=== PATIENT | female | born 1985 | race African-American/Black ===

== ENCOUNTER 2024-05-17 15:37 | Outpatient (CLI) | payer OTHER, SELFPAY ==
[2024-05-17 17:11] LABS: Trichomonas Vag PCR NOT DETECTED (NOT DETECTE)
[2024-05-17 17:36] LABS: Chlamydia trachomatis NOT DETECTED (NOT DETECTE); Neisseria gonorrhoeae PCR NOT DETECTED (NOT DETECTE)
== END 2024-05-17 15:38 | disposition home or self-care (01) ==
PROVIDERS: Visit Provider Obstetrics & Gynecology
DX: Z11.3 Encounter for screening for infections with a predominantly sexual mode of transmission (principal)
CPT/HCPCS: 87491; 87591; 87661

== ENCOUNTER 2025-05-16 13:22 | Outpatient (CLI) | payer OTHER, SELFPAY ==
--- NOTE | ~2025-05-16 | US_ITS ---
EXAMINATION: US pelvic complete w TV INDICATION: Leiomyoma of the uterus Comparison:No prior studies for comparison. TECHNIQUE: Multiple transabdominal and endovaginal sonographic images of the pelvis performed. FINDINGS: The uterus measures 9.8 x 4.3 x 5.8 cm. There is a fibroid measuring 4.2 x 3.8 x 3.4 cm The endometrial complex measures 12 mm. The right ovary measures 2.4 x 1.9 x 2.4 cm and the left ovary measures 3.7 x 3 x 3.2 cm. There are small follicles in each ovary. Normal doppler signal in both ovaries. There is no free fluid in the pelvis. There are no abnormal masses seen on either side. IMPRESSION: 1. Uterine fibroids, largest measuring 4.2 cm. 2: Mild endometrial thickening measuring 12 mm. Reviewed, dictated and finalized at location O.
--- OUTSIDE RECORDS SUMMARY | 2025-05-16 13:26 | XMS_ITS | Encounter Summary ---
Author Organization [facility] Facility Care Team Providers Care Chimney Builder Helper Name Role Phone Rohan العلي Primary Care Provider [phone] Le Ramirez MD Unavailable [phone] Brandy Dick NP Primary Care Provider [phone] Encounter Details Date Type Department Care Team (Latest Contact Info) Description 02/08/2017 Orders Only [facility] CLINCONV ProviderBernardo MD [address] [place] [address] Social History Tobacco Use Types Packs/Day Years Used Date Smoking Tobacco: Never Assessed Comments Unknown Sex and Gender Information Value Date Recorded Sex Assigned at Not on file Legal Sex Female 9:02 PM CDT Gender Identity Not on file Sexual Orientation Not on file documented as of this encounter Plan of Treatment Not on file documented as of this encounter Procedures Procedure Name Priority Date/Time Associated Diagnosis Comments COLONOSCOPY - SCAN 02/08/2017 12 :00 AM CDT documented in this encounter Results * COLONOSCOPY - SCAN (02/08/2017 12:00 AM CDT) Narrative 02/08/2017 12:00 AM CDT Ordered by an unspecified provider. Historical Provider Final Res ult documented in this encounter Visit Diagnoses Not on filedocumented in this encounter Care Teams Chimney Builder Helper Relationship Specialty Start Date End Date Rohan العلي PA PCP - General 11/26/18 05/05/24 Brandy Dick NP [facility] [address] PCP - General Family Medicine 05/06/24 Le Ramirez MD [address] [id number] Gynecology 01/20/21 documented as of this encounter
--- OUTSIDE RECORDS SUMMARY | 2025-05-16 13:26 | XMS_ITS | Clinical Summary ---
Author Organization [facility] Address [address] [place] [phone] Care Team Providers Care Can Bander Operator Name Role Phone Unavailable Primary Care Provider Unavailabl e Social History Tobacco Use Types Packs/Day Years Used Date Smoking Tobacco: Never Assessed Comments Unknown Sex and Gender Information Value Date Recorded Sex Assigned at Not on file Legal Sex Female 8:08 AM TOBACCO ROLLER Gender Identity Not on file Sexual Orientation Not on file Plan of Treatment Health Maintenance Due Date Last Done Comments Hepatitis C Virus (HCV) Screening 1985 TdaP Immunization 1985 Hepatitis B Immunization (1 of 3 - 19+ 3-dose series) 2004 Pap Smear 2006 Human Papillomavirus (HPV) Immunization (1 - 3-dose SCDM series) 2012 Cervical Cancer Screening (CCS) 2015 HPV/Cotest 2015 SARS-COV-2 Immunization ( - season) 2024 Influenza Immunization (#1) 2025 06/26/2019, 1 Respiratory Syncytial Virus (RSV) Immunization (Adult) (1 - 1-dose 75+ series) 2060 DTaP/Tdap/Td Immunization Discontinued 1989, 12/04/1986, 1985, Additional history exists Meningococcal Immunization (ACWY) Aged Out No longer eligible based on patient's age to complete this topic Pneumococcal Immunization Combined Aged Out No longer eligible based on patient's age to complete this topic Rotavirus Immunization Aged Out No lo nger eligible based on patient's age to complete this topic
--- OUTSIDE RECORDS SUMMARY | 2025-05-16 13:26 | XMS_ITS | Encounter Summary ---
Author Organization [facility] Healthcare Address [address] [place] [address] Care Team Providers Care Case Liner Name Role Phone Le Ramirez MD Unavailable [phone] Brandy Dick NP Primary Care Provider [phone] Encounter Details Date Type Department Care Team ([facility] st Contact Info) Description 05/02/2025 Results Follow-Up [facility] Medical Group Primary Care [address] [phone] Brandy Dick, DIRECTOR DRUG SAFETY [facility] [address] [address] Screening Mammogram Bilateral W [place] Social History Tobacco Use Types Packs/Day Years Used Date Smoking Tobacco: Never Alcohol Use Standard Drinks/Week Comments Not Currently 0 (1 standard drink = 0.6 oz pur e alcohol) AUDIT-C Answer Date Recorded Q1: How often do you have a drink containing alcohol? Never 05/06/2024 Q2: How many drinks containi ng alcohol do you have on a typical day when you are drinking? Patient does not drink Q3: How often do you have si x or more drinks on one occasion? Never 05/06/2024 PHQ-2 Answer Date Recorded PHQ-2 Total Score (If total score is 3 or more points, staff should administer the PHQ-9) 0 12/18/2024 Comments No Sex and Gender Information Value Date Recorded Sex Assigned at Not on file Legal Sex Female 9:02 PM CDT Gender Identity Not on file Sexual Orientation Not on file documented as of this encounter Miscellaneous Notes * Result Encounter Note - Brandy Dick NP - 05/02/2025 1:10 PM CDT Your mammogram is normal. Repeat screening in one year. documented in this encounter Plan of Treatment Not on file documented as of this encounter Visit Diagnoses Not on filedocumented in this encounter Care Teams Case Liner Relationship Specialty Start Date End Date Brandy Dick NP [address] [place] [id number] PCP - General Family Medicine 05/06/24 Le Ramirez MD [address] [id number] Gynecology 01/20/21 documented as of this encounter
--- OUTSIDE RECORDS SUMMARY | 2025-05-16 13:26 | XMS_ITS | Clinical Summary ---
Author Organization [facility] Address [address] [place] [address] Care Team Providers Care Marine Cargo Specialist Name Role Phone Le Ramirez MD Unavailable Brandy Dick NP Primary Care Provider [phone] Allergies No known active allergies Medications clotrimazole 1 % cream Apply topically 2 (two) times a day 30 g 1 4 Active Additional Information Patient not taking.Reported on 12/18/2024 losartan (COZAAR) 25 mg tablet Take 0.5 tablets (12.5 mg total) by mouth daily 90 tablet 1 4 06/19/20 25 Active naproxen (NAPROSYN) 500 mg tablet Take 1 tablet (500 mg total) by mouth 2 (two) times a day as needed for pain 60 tablet 1 4 Active Additional Information Patient not taking.Reported on 12/18/2024 metroNIDAZOLE (METROGEL) 0.75 % (37.5mg/5 gram) vaginal gelIndications: Bacterial Vaginosis Apply to vagina nightly for 5 nights. 70 g 4 Active Additional Information Patient not taking.Reported on 12/18/2024 magnesium oxide (MAG-OX) 250 mg (150.8 mg elemental) tabletIndicatio ns:hypomagnesem ia 1 tablet (250 mg total) daily Active polyethylene glycol (MIRALAX) 17 gram packetIndicatio ns:constipation Take 1 packet (17 g total) by mouth daily Active linaCLOtide (Linzess) 72 mcg capsule Take 1 capsule (72 mcg total) by mouth daily 30 capsule 3 Active Active Problems Problem Noted Date Diagnosed Date Upper back pain 08/04/2024 Assessment & Plan (08/04/2024 5:06 PM PILLOWCASE MAKER): Chronic, uncontrolled. Patient prescribed naproxen 500 mg BID PRN for pain. Patient to call office if pain does not improve with medication use. Slow transit constipation 11/09/2023 Assessment & Plan (12/18/2024 12:33 PM CDT): Chronic, uncontrolled. Patient prescribed Linzess 72 mcg daily. Patient provided with education on medication administration and potential side effects. Patient to hold Magnesium and Miralax when using Linzess. Patient referred to GI for follow up. Assessment & Plan (06/19/2024 8:43 AM CDT): Chronic, improving with Magnesium use. Patient to start Miralax PRN. Follow up larry 6 months. Assessment & Plan (05/06/2024 5:11 PM CDT): Chronic, patient to begin Miralax daily. Patient also instructed to increase daily water intake and high fiber foods. Follow up in 2 weeks. Assessment & Plan (11/09/2023 12:30 PM PILLOWCASE MAKER): Patient and I had a long talk about hydration water fiber we are going to work on this for few weeks and see if this helps with her constipation and fullness and bloating if it persists we did discuss having a colonoscopy Routine general medical exam ination at a [facility] facility 05/02/2023 Assessment & Plan (05/06/2024 5:09 PM CDT): CBC, CMP, lipid panel UTD with stable results. Patient to sign release for to obtain last Pap completed by her WAREHOUSE PROCESSOR with [facility]. Vaccinations: Due for Tdap booster. Patient to continue on current diet and exercise routine. Repeat wellness exam in one year. Assessment & Plan (05/02/2023 3:37 PM CDT): Healthcare maintenance updated LOLY (obstructive sleep apnea) 02/21/2023 Assessment & Plan (06/20/2024 3:23 PM CDT): Patient continue to wear her CPAP at auto titrating range 5-15 cm water pressure while sleeping. Her DME is [facility] Assessment & Plan (05/06/2024 5:10 PM CDT): Chronic, controlled with nightly CPAP use, following with pulmonology. Assessment & Plan (11/09/2023 10:06 AM PILLOWCASE MAKER): C-pap Assessment & Plan (06/20/2023 3:11 PM CDT): Due to continued LOLY symptoms, the patient continue CPAP at 5-15 cm water pressure. Denied need for supplies. DME [facility]. Due to the patient waking up with a headache similar to the 1 prior to CPAP therapy, I have ordered the patient overnight pulse ox on CPAP therapy. I also asked the patient to try to correlate the headaches with any external factors Assessment & Plan (02/21/2023 3:23 PM CDT): The patient continue to wear her CPAP in auto titrating range of 5-15 cm water pressure while sleeping. Her DME is [facility] Home Care. Primary hypertension 11/15/2022 Assessment & Plan (12/18/2024 12:35 PM CDT): Chronic, controlled. Patient to continue on Losartan 25 mg daily. Follow up in 6 months. Assessment & Plan (06/19/2024 8:44 AM CDT): Patient presents with elevated blood pressure reading in office. Patient to remain off lisinopril due to side effects. Patient prescribed Losartan 12.5 mg daily. Patient to call office if her blood pressure remains over 140/90 with Losartan use. Follow up in 6 months. Assessment & Plan (05/06/2024 5:07 PM CDT): Patient presents with elevated blood pressure reading in office. Patient to remain off Lisinopril 10 mg at this time. She is to begin checking her blood pressure at home BID. Follow up in 2 weeks for blood pressure recheck, home blood pressure log will be reviewed during her follow up. Assessment & Plan (11/09/2023 10:05 AM PILLOWCASE MAKER): This is controlled with c-pap Assessment & Plan (11/15/2022 2:06 PM PILLOWCASE MAKER): This is new, medications as ordered, discussed medications, use and side effects, labs 2 weeks with blood pressure readings Breast mass 01/20/2021 Screening, anemia, deficiency, iron 12/04/2019 Assessment & Plan (04/28/2022 2:34 PM CDT): HEALTHCARE MAINTENANCE Updated Assessment & Plan (03/23/2021 3:26 PM CDT): HEALTHCARE MAINTENANCE updated, Pap UTD Assessment & Plan (02/27/2020 8:55 AM CDT): HEALTHCARE MAINTENANCE updated, pap tomorrow Herpes labialis without complication 09/29/2019 Assessment & Plan (09/29/2019 9:35 AM PILLOWCASE MAKER): Famvir as directed. Instructed to avoid sharing food, drinks, or utensils, and kissing until lesions heal. Instructed to wash hands after coming in contact with lesion. Abreva over the counter PRN. Advised to follow-up with PCP if symptoms don't resolve, worsen, new symptoms develop, or if frequent recurrences. Willing to be kidney donor 01/30/2015 Indigestion 03/07/2012 Assessment & Plan (12/18/2024 12:34 PM CDT): Chronic, patient to follow a bland diet, avoiding spicy foods/acidic foods, caffeine, alcohol, and late night eating. Follow up in 6 months. Assessment & Plan (02/27/2020 8:54 AM CDT): Images from the original note were not included. Avoid spicy, fried, greasy foods Keep hydrated with clear liquids Elevate HOB 2- 3 inches Avoid or cut down on caffeines, chocolates, and ETOH No late meals, or heavy meals after 7 pm Reg daily exercise No tight fitting clothing Stop smoking - if smoker Watch for worsening symptoms - ie diarrhea, vomiting, nausea, blood per rectum, vomiting up blood ,fever, arthralgias, rash etc. RTC prn or if new symptoms arise Pt or parent verbalizes understanding Heart murmur 03/02/2012 Assessment & Plan (02/27/2020 8:54 AM CDT): Faint, will follow, had previous echo Resolved Problems Problem Noted Date Diagnosed Date Resolved Date Snoring 11/08/2022 02/21/2023 Assessment & Plan (11/22/2022 3:07 PM PILLOWCASE MAKER): Due to the snoring and hypersomnia, I have ordered an in-home nocturnal polysomnogram as required by her insurance. Procedure was detailed in depth. Patient was encouraged to call into the office if she has any questions. The patient is agreeable Feces contents abnormal 03/07/201204/25 Encounters Date Type Department Care Team Description 05/02/2025 Results Follow-Up [facility] Primary Care [address] [place] [phone] Brandy Dick, PHILIPPE Screening Mammogram Bilateral W Rosamaria 05/01/2025 7:18 AM CDT - 05/01/2025 11:59 PM CDT Hospital Encounter [facility] ([facility]) [address] [place] [address] Screening mammogram, encounter for Discharge Disposition: Discharge to home or self care 03/06/2025 9:00 AM CDT Clinical Support [facility] [address] [place] [address] Weight loss [R63.4] (Primary Dx) from Last 3 Months Immunizations Immunization Administration Dates Next Due DTP 04/20/1990, 7,1985,07/05,1985 HiB 06/20/1986 Influenza, Quadrivalent, Spl it, Preservative Free, Intramuscular 06/28/2023,07/01/2022 Influenza, Trivalent, Preser vative Free, Intramuscular 08/01/2024 Influenza, Unspecified 06/28/2023,2021,08/01/2021,06/25,06/26/2019,06/25/2018 MMR 07/02/1995,08/02/1991,06/20/1986 OPV 04/20/1990, 7,1985,07/05,1985 Pfizer SARS-CoV-2 Monovalent Vaccination (12+ Yrs) PURPLE 03/10/2021,02/17/2021 Family History Medical History Relation Name Comments Hypertension Father Family history of hypertension - (Added by TW Conv) No Known Problems Mother Relation Name Status Comments Father (Age 63) Mother Alive Social History Tobacco Use Types Packs/Day Years Used Date Smoking Tobacco: Never Tobacco Cessation:Counseling Given: Not Answered Alcohol Use Standard Drinks/Week Comments Not Currently [...] on file Sexual Orientation Not on file Obstetrics History Para Term AB IAB SAB Ectopic Multiple Livin g Live Births 0 0 0 0 0 0 0 0 0 0 0 Last Filed Vital Signs Vital Sign Reading Time Taken Comments Blood Pressure 155/103 03/06/2025 10:03 AM CDT Pulse 76 12/18/2024 8:19 AM CDT Temperature 36.1 C (97 F) 12/18/2024 8:19 AM CDT Respiratory Rate 20 12/18/2024 8:19 AM CDT Oxygen Saturation 99% 12/18/2024 8:19 AM CDT Inhaled Oxygen Concentration - - Weight 79.4 kg (175 lb) 05/01/2025 7:28 AM CDT Height 149.9 cm (4' 11) 05/01/2025 7:28 AM CDT Body Mass Index 35.35 05/01/2025 7:28 AM CDT Plan of Treatment Health Maintenance Due Date Last Done Comments Hepatitis B Screening 2003 HPV Vaccines (1 - 3-dose SCDM series) 2012 Cervical Cancer Screening 04/25/2025 04/25/2024 Regular Well Visit/Exam 18-64 05/06/2025 05/06/2024, 05/06/2024, 05/02/2023, Additional history exists Influenza Vaccine (#1) 2025 , 06/28/2023, 06/28/2023, Additional history exists Covid-19 Vaccine ( season) 2025 10/15/2021, 03/10/2021, 02/17/2021 Postponed from 05/26/2024 (Patient declined, but will receive in the future) DTaP/Tdap/Td Vaccine (6 - Tdap) 08/12/2025 04/20/1990, 12/04/1986, 1985, Additional history exists Postponed from 1996 (Patient declined, but will receive in the future) Depression Screening 12/18/2025 12/18/2024, 05/06/2024, 05/02/2023, Additional history exists Breast Cancer Screening-Mammogram 05/01/2026 05/01/2025, 11/25/2020 Hepatitis C Screening Completed 02/04/2015 Pneumococcal vaccine <65 Aged Out No longer eligible based on patient's age to complete this topic Varicella Vaccines Discontinued Procedures Procedure Name Priority Date/Time Associated Diagnosis Comments SCREENING MAMMOGRAM BILATERAL W ROSAMARIA Schedule Routine, Read Routine (OP Routine) 05/01/2025 7:42 AM CDT Screening mammogram, encounter for SERUM HEPATITIS C AB Routine 02/04/2015 2:44 AM CDT from Last 3 Months or Most Recently Relevant to Health Maintenance Results * Screening Mammogram Bilateral W Rosamaria (05/01/2025 7:42 AM CDT) Anatomical Region Laterality Modality Breast Bilateral Mammography Impressions 05/02/2025 11:51 AM CDT Bilateral No evidence of malignancy in either breast. OVERALL BI-RADS FINAL ASSESSMENT: 2 - Benign RECOMMENDATION: Recommend bilateral annual screening mammography. If supplemental screening is desired for heterogeneously dense breast tissue, consider breast MRI every 1-2 years. If breast MRI cannot be performed, contrast-enhanced mammography is an alternative. Narrative 05/02/2025 11:51 AM CDT EXAMINATION: Screening Mammogram Bilateral W Rosamaria: 05/01/2025 COMPARISON: Relevant prior studies available at the time of interpretation were reviewed, including the most recent mammogram on: 01/06/2021. TECHNIQUE: Mammography was performed with 2D and 3D digital breast tomosynthesis (DBT) images. CAD was utilized. BREAST PARENCHYMAL COMPOSITION: The breasts are heterogeneously dense, which may obscure small masses. FINDINGS: Bilateral 1) Mass: There are multiple similar oval masses seen in both breasts, compatible with a benign finding. This finding is benign. There is no suspicious mass, calcification, or architectural distortion in either breast. There have been no significant interval changes from the prior study. us Self Screening Mammogram IMG MAMMO PROCEDURES Fi nal Result * Serum Hepatitis C ab (02/04/2015 2:44 AM CDT) HCV ab Negative NEG HISTORICAL RESULTS Serum 02/04/2015 2:44 AM CDT Narrative HISTORICAL RESULTS - 02/04/2015 5:25 AM CDT Client / Account bill? No Client Account Number and Description: Interpretive Data If confirmation is required, call Laboratory Customer Service to request sample to be sent to [facility] for Hepatitis C Virus (HCV) RNA Detection and Quantitation by Real-Time Reverse Staffing Assistant-PCR (RT-PCR). Current interpretive data was last revised on 2011 us Historical Provider LAB BLOOD ORDERABLES Karol lai Result HISTORICAL RESULTS from Last 3 Months or Most Recently Relevant to Health Maintenance Insurance [employer] Address: [address] [place] [address] [employer] Address: [address] [place] [address] Care Teams Marine Cargo Specialist Relationship Specialty Start Date End Date Brandy Dick NP [address] [place] [id number] PCP - General Family Medicine 05/06/24 Le Ramirez MD [address] [address] Gynecology 01/20/21
--- OUTSIDE RECORDS SUMMARY | 2025-05-16 13:27 | XMS_ITS | Clinical Summary ---
Author Organization [facility] Address [address] [place] [address] Care Team Providers Care Bridal Consultant Name Role Phone Rohan العلي PA-C Primary Care Provider [phone] Social History Tobacco Use Types Packs/Day Years Used Date Smoking Tobacco: Never Assessed Comments Unknown Sex and Gender Information Value Date Recorded Sex Assigned at Not on file Legal Sex Female 7:21 PM CDT Gender Identity Not on file Sexual Orientation Not on file Plan of Treatment Health Maintenance Due Date Last Done Comments Cervical Cancer Screening Pa p Smear (Age 30 to 64) Every 3 Years 1985 Annual Physical 1988 Hepatitis C 2003 DTaP, Tdap and Td Vaccines ( 1 - Tdap) 2004 Hepatitis B Vaccines (1 of 3 - 19+ 3-dose series) 2004 HPV Vaccines (1 - 3-dose SCD M series) 2012 Cervical Cancer Screening Pa p with HPV Testing (Age 30 to 64) Every 5 Years 2015 Cervical Cancer Screening with HPV 2015 COVID-19 Vaccine (2023-2 5 season) 2024 Mammogram Screening 2025 Meningococcal B Vaccine Aged Out No l onger eligible based on patient's age to complete this topic Meningococcal Vaccine Aged Out No jonah richelle eligible based on patient's age to complete this topic Pneumococcal Vaccine: Pediat rics (0 to 5 Years) and At-Risk Patients (6 to 49 Years) Aged Out No longer eligible b ased on patient's age to complete this topic RSV Immunizations Under 20 Months Aged Out No longer eligible based on patient's age to complete this topic Care Teams Bridal Consultant Relationship Specialty Start Date End Date Rohan العلي PA-C PCP - General 10/06/14
== END 2025-05-16 13:23 | disposition home or self-care (01) ==
PROVIDERS: PCP Nurse Practitioner; Visit Provider Obstetrics & Gynecology
DX: D25.9 Leiomyoma of uterus, unspecified (principal)
CPT/HCPCS: 76830; 76856